=== PATIENT | male | born 1960 | race Caucasian/White ===

== ENCOUNTER 2024-11-18 13:52 | Inpatient (IN) | payer OTHER ==
[2024-11-18 14:17] VITALS: BMI 17.2
[2024-11-18] MEDS ORDERED: MAGNESIUM HYDROX 2400MG/30ML ORAL SUSPENSION 30 ML CUP PO PRN (14:30)
[2024-11-18] MEDS ORDERED: BENZOCAINE/MENTHOL (CHLORASEPTIC ) LOZENGE MM PRN (14:30)
[2024-11-18] MEDS ORDERED: guaiFENesin 600 MG TABLET.ER (FP) PO PRN (14:30)
[2024-11-18] MEDS ORDERED: ONDANSETRON *ODT* 4 MG TABLET SL PRN (14:30)
[2024-11-18] MEDS ORDERED: BISMUTH SUBSALICYLATE 262 MG/15 ML BTL PO PRN (14:30)
[2024-11-18] MEDS ORDERED: IBUPROFEN 400 MG TABLET (FP) PO PRN (14:30)
[2024-11-18] MEDS ORDERED: LOPERAMIDE HCL 2 MG CAPSULE PO PRN (14:30)
[2024-11-18] MEDS ORDERED: ACETAMINOPHEN 325 MG TABLET (FP) PO PRN (14:30)
[2024-11-18] MEDS ORDERED: MAG HYDROX/AL HYDROX/SIMETH 30 ML UNIT-DOSE CUP PO PRN (14:30)
[2024-11-18] MEDS ORDERED: NALOXONE (NARCAN) HCL 4 MG/0.1 ML SPRAY NS PRN (14:30)
[2024-11-18] MEDS ORDERED: POLYETHYLENE GLYCOL (HEALTHYLAX) 3350 17 GM PACKET PO PRN (14:30)
[2024-11-18] MEDS ORDERED: DICYCLOMINE HCL 10 MG CAPSULE PO PRN (14:30)
[2024-11-18] MEDS ORDERED: BENZONATATE 200 MG CAPSULE PO PRN (14:30)
[2024-11-18] MEDS ORDERED: methaDONE HCL 10 MG TABLET (FOR DETOX USE ONLY) ONE (15:36)
[2024-11-18] MEDS: PRENATAL VITAMINS W/ FOLIC ACID TABLET (FP) PO SCH (15:40)
[2024-11-18] MEDS: NICOTINE 14 MG/24 HOURS TOPICAL PATCH TD SCH (15:40)
[2024-11-18] MEDS: methaDONE HCL 10 MG TABLET (FOR DETOX USE ONLY) PO ONE (15:40)
[2024-11-18] MEDS: cloNIDine HCL 0.1 MG TABLET PO SCH (17:36)
[2024-11-18] MEDS: THIAMINE 100 MG TABLET PO SCH (22:56)
[2024-11-18] MEDS: BUPRENORPHINE/NALOXONE 0.5 MG/0.125 MG FILM SL ONE (22:56)
[2024-11-18] MEDS: MELATONIN 5 MG TABLETS PO SCH (22:56)
[2024-11-19] MEDS: METHOCARBAMOL 500 MG TABLET PO PRN (06:25)
[2024-11-19] MEDS: hydrOXYzine PAMOATE 25 MG CAPSULE (FP) PO PRN (06:25)
[2024-11-19] MEDS: BUPRENORPHINE/NALOXONE 0.5 MG/0.125 MG FILM SL SCH (10:55)
[2024-11-19] MEDS: PATIENT'S OWN MEDICATION (NON-FORMULARY) (Sofosbuvir/Velpatasvir [Sofosbuvir-Velpatasvir 4 PO SCH (12:17)
[2024-11-19 12:41] LABS: HEMOGLOBIN 11.6 g/dL (13.7-17.5); MCHC 31.4 g/dl (32.3-36.5); MEAN CELL VOLUME 88.5 fl (79.0-92.2); MEAN PLT VOLUME 10.1 fl (9.4-12.4); PLATELET COUNT # 182 x10^3/uL (163-337); RDW 15.1 % (12.2-16.4)
[2024-11-19 12:47] LABS: POTASSIUM 3.3 mmol/L (3.5-5.1)
[2024-11-19 12:48] LABS: CALCIUM 8.6 mg/dL (8.5-10.1)
[2024-11-19 12:49] LABS: ALBUMIN 2.8 g/dl (3.4-5.0); BLOOD UREA NITROGEN 18.3 mg/dL (7-18)
[2024-11-19 12:52] LABS: CREATININE 0.5 mg/dL (0.55-1.3)
[2024-11-19 12:54] LABS: BILIRUBIN,TOTAL 0.3 mg/dL (0.2-1); TOT PROT 5.8 g/dl (6.4-8.2)
[2024-11-20] MEDS: IBUPROFEN 600 MG TABLET (FP) PO PRN (09:49)
[2024-11-20] MEDS: BUPRENORPHINE/NALOXONE 2 MG/0.5 MG FILM PACKET SL SCH (09:50)
[2024-11-20] MEDS: methaDONE HCL 10 MG TABLET (FOR DETOX USE ONLY) PO ONE (09:50)
[2024-11-20] MEDS: POTASSIUM CHLORIDE ORAL LIQUID 20 MEQ/15 ML PO ONE ×2 (10:22→17:25)
[2024-11-20] MEDS ORDERED: POTASSIUM CHLORIDE ORAL LIQUID 20 MEQ/15 ML PO ONE (16:00)
[2024-11-21] MEDS: cloNIDine HCL 0.1 MG TABLET PO ONE (07:34)
[2024-11-21] MEDS: BUPRENORPHINE/NALOXONE 4 MG/1 MG FILM PACKET SL SCH (10:27)
[2024-11-21] MEDS: LIDOCAINE 5% TOPICAL PATCH TP SCH (11:05)
[2024-11-21] MEDS: LOSARTAN POTASSIUM 50 MG TABLET PO SCH (11:05)
[2024-11-21] MEDS: LIDOCAINE PATCH REMOVAL MC SCH (22:09)
[2024-11-22] MEDS: cloNIDine HCL 0.1 MG TABLET PO ONE (07:00)
[2024-11-22] MEDS: BUPRENORPHINE/NALOXONE 8 MG/2 MG FILM PACKET SL SCH (09:51)
[2024-11-22] MEDS: methaDONE HCL 10 MG TABLET (FOR DETOX USE ONLY) PO ONE (09:52)
[2024-11-22] MEDS: ASPIRIN COATED 81 MG TABLET.EC PO ONE (22:48)
[2024-11-22] MEDS: amLODIPine BESYLATE 5 MG TABLET (FP) PO ONE (22:48)
[2024-11-23] MEDS: cloNIDine HCL 0.1 MG TABLET PO ONE (07:02)
[2024-11-23] MEDS: BUPRENORPHINE/NALOXONE 8 MG/2 MG FILM PACKET SL SCH (10:21)
[2024-11-23 10:23] VITALS: BP 148/85; PULSE 56; RESP 16; TEMP 93.7
== END 2024-11-23 12:21 | disposition other institution (70) | DRG 773 ==
LOC: YASAS 13:52 → Y6N 15:19
PROVIDERS: ADMIT Allergy & Immunology; ATTEND Allergy & Immunology
PROC: HZ2ZZZZ Detoxification Services for Substance Abuse Treatment (ICD-10-PCS; principal; 2024-11-18)
DX: F11.23 Opioid dependence with withdrawal (principal); F14.20 Cocaine dependence, uncomplicated; F17.210 Nicotine dependence, cigarettes, uncomplicated; E87.6 Hypokalemia; I10 Essential (primary) hypertension; B18.2 Chronic viral hepatitis C; M54.50 Low back pain, unspecified; G89.29 Other chronic pain; R73.9 Hyperglycemia, unspecified; R63.6 Underweight; Z68.1 Body mass index [BMI] 19.9 or less, adult
CPT/HCPCS: 36415; 80053; 80305; 83036; 84132; 85027; 86780; 87811; 93005; 93010